=== PATIENT | female | born 1985 | race Caucasian/White ===

== ENCOUNTER 2018-10-22 20:26 | Inpatient (IN) | payer BC ==
[2018-10-22] MEDS ORDERED: NS 0.9% 1000 ML** 1,000 ML IV ONE (20:35)
[2018-10-22] MEDS ORDERED: Tetan/Diph/Pertus SYR(Tdap)* 0.5 ML SYR(BOOSTRIX) use SYR IM ONE (20:46)
[2018-10-22 20:52] LABS: Hematocrit 42 % (35-47); Hemoglobin 14.8 g/dl (12.0-16.0); Mean Corpuscular HGB Conc 35 g/dl (31-36); Mean Corpuscular Hemoglobin 33 pg (27-31); Mean Corpuscular Volume 95 fL (80-97); Mean Platelet Volume 7.3 fL (7.4-10.4); Platelet Count 284 10^3/ul (150-450); Red Blood Count 4.46 10^6/ul (4.00-5.40); Red Cell Distribution Width 13 % (10.5-15); White Blood Count 9.6 10^3/ul (3.5-10.8)
--- NOTE | 2018-10-22 20:59 | ED ---
Lower Extremity - HPI Summary HPI Summary: A 33 y/o female brought in by ambulance presents to the ED s/p fall and hitting right turcios. In the ED room, the patient has a pulse of 111 BPM, O2 saturation of 96%, respiratory rate of 15, and blood pressure of 141/102. As per triage, "BIBA als for fall resulting afall and hitting the right turcios. Obvious deformity. CMS+ Pt recieved 10 mg of Morphine in the ambulance. Reports drinking 2 beeers and 4 shots of liquor". According to the patient, she fell in the parking lot and could not get up. She stated that she screamed in the parking lot and someone called EMS. Patient stated that she was drinking ETOH tonight and probably had 6 drinks. She noted that at 1700, she had chicken tenders for dinner. She denies any neck and back pain. - History of Current Complaint Chief Complaint: EDExtremityLower Stated Complaint: RIGHT LEG INJURY Time Seen by Provider: 10/22/18 20:32 Hx Obtained From: Patient Mechanism Of Injury: Fall From Height Of: - HIT RIGHT TURCIOS Onset/Duration: Minutes Severity Initially: Severe Severity Currently: Severe Pain Intensity: 10 Pain Scale Used: 0-10 Numeric Location: Is Discrete @ - RIGHT LEG Associated Signs And Symptoms: Positive: Negative Aggravating Factor(s): Movement Alleviating Factor(s): Nothing Able to Bear Weight: No - Allergies/Home Medications Allergies/Adverse Reactions: Allergies Allergy/AdvReac Type Severity Reaction Status Date / Time No Known Allergies Allergy Verified 10/22/18 20:37 Home Medications: Home Medications Sertraline* [Zoloft*] 100 mg PO DAILY 10/22/18 [History Confirmed 10/22/18] PMH/Surg Hx/FS Hx/Imm Hx Endocrine/Hematology History: Denies: Hx Diabetes Cardiovascular History: Denies: Hx Hypertension - Surgical History Surgery Procedure, Year, and Place: none Infectious Disease History: No Infectious Disease History: Denies: Traveled Outside the [place] in Last 30 Days - Family History Known Family History: Negative: Diabetes - Social History Alcohol Use: None Substance Use Type: Reports: None Hx Tobacco Use: No Smoking Status (MU): Never Smoked Tobacco Review of Systems Negative: Fever, Chills Negative: Erythema Negative: Sore Throat Negative: Chest Pain Negative: Shortness Of Breath Negative: Abdominal Pain, Vomiting, Nausea Negative: dysuria, hematuria Positive: Other - POSITIVE: RIGHT LEG PAIN; NEGATIVE: BACK PAIN, NECK PAIN. Negative: Myalgia, Edema Negative: Rash Neurological: Other - NEGATIVE: DIZZINESS All Other Systems Reviewed And Are Negative: Yes Physical Exam - Summary Physical Exam Summary: Constitutional: Well-developed, Well-nourished, Alert. (-) Distressed Skin: Pencil eraser sized puncture over the middle of the skin. HENT: Normocephalic; Atraumatic Eyes: Conjunctiva normal Neck: Musculoskeletal ROM normal neck. (-) JVD, (-) Stridor, (-) Tracheal deviation Cardio: Rhythm regular, rate normal, Heart sounds normal; Intact distal pulses; The pedal pulses are 2+ and symmetric. Radial pulses are 2+ and symmetric. (-) Murmur Pulmonary/Chest wall: Effort normal. (-) Respiratory distress, (-) Wheezes, (-) Rales Abd: Soft, (-) epigastric tenderness, (-) Distension, (-) Guarding, (-) Rebound Musculoskeletal: (-) Edema. Deformity of foot is externally rotated. Distal sensation is somewhat diminished, distal pulses are intact. Lymph: (-) Cervical adenopathy Neuro: Alert, Oriented x3 Psych: Mood and affect Normal Triage Information Reviewed: Yes Vital Signs On Initial Exam: Initial Vitals Temp Pulse Resp BP Pulse Ox 98.6 F 86 18 133/97 96 10/22/18 20:32 10/22/18 20:32 10/22/18 20:32 10/22/18 20:32 10/22/18 20:32 Vital Signs Reviewed: Yes Procedures - Joint Reduction Right Joint Reduction Site: other - RIGHT TURCIOS. USING 60 CM OF 6 INCH ORTHOGLASS IN POSTERIOR CONFIGURATION. FRACTURES ARE COMPOUND. Specify Other Joint Reduced: PATIENT HAD DIMINISHED SENSATION BEFORE REDUCTION. Conscious Sedation: Yes - DISTAL SENSATION IMPROVED AFTER REDUCTION. Reduction Attempts: 1 - FRAGMENTS ARE SHIFTING DURING REDUCTION Pre-Procedure NV Exam: No - PRE NV WAS NOT INTACT, HOWEVER, POST NV IS INTACT ( IMPROVED). Post Joint Reduction Film: joint reduced - NV INTACT Diagnostics - Vital Signs Vital Signs Temp Pulse Resp BP Pulse Ox 10/22/18 20:32 98.6 F 86 18 133/97 96 - Laboratory Lab Results: Lab Results 10/22/18 Range/Units 20:43 WBC 9.6 (3.5-10.8) 10^3/ul RBC 4.46 (4.00-5.40) 10^6/ul Hgb 14.8 (12.0-16.0) g/dl Hct 42 (35-47) % MCV 95 (80-97) fL MCH 33 H (27-31) pg MCHC 35 (31-36) g/dl RDW 13 (10.5-15) % Plt Count 284 (150-450) 10^3/ul MPV 7.3 L (7.4-10.4) fL Result Diagrams: 10/22/18 20:43 10/22/18 20:43 Lab Statement: Any lab studies that have been ordered have been reviewed, and results considered in the medical decision making process. - Radiology LOWER EXTREMITY XR Radiology Interpretation Completed By: ED Physician Summary of Radiographic Findings: OPEN COMPOUND SPIRAL FRACTURE OF TIBIA AND FIBULA. PENDING OFFICIAL REPORT. LOWER EXTREMITY XR 2 Radiology Interpretation Completed By: ED Physician Summary of Radiographic Findings: OPEN COMPOUND SPIRAL FRACTURE OF TIBIA AND FIBULA. PENDING OFFICIAL REPORT. KNEE XR Radiology Interpretation Completed By: ED Physician Summary of Radiographic Findings: OPEN COMPOUND SPIRAL FRACTURE OF TIBIA AND FIBULA. PENDING OFFICIAL REPORT. ANKLE XR Radiology Interpretation Completed By: ED Physician Summary of Radiographic Findings: OPEN COMPOUND SPIRAL FRACTURE OF TIBIA AND FIBULA. PENDING OFFICIAL REPORT. Lower Extremity Course/Dx - Course Course Of Treatment: A 33 y/o female brought in by ambulance presents to the ED s/p fall and hitting right turcios. In the ED room, the patient has a pulse of 111 BPM, O2 saturation of 96%, respiratory rate of 15, and blood pressure of 141/ 102. As per triage, "BIBA als for fall resulting afall and hitting the right turcios. Obvious deformity. CMS+ Pt recieved 10 mg of Morphine in the ambulance. Reports drinking 2 beeers and 4 shots of liquor". According to the patient, she fell in the parking lot and could not get up. She stated that she screamed in the parking lot and someone called EMS. Patient stated that she was drinking ETOH tonight and probably had 6 drinks. She noted that at 1700, she had chicken tenders for dinner. She denies any neck and back pain. Physical examination findings significant for pencil eraser sized puncture over the middle of the skin, deformity of foot is externally rotated. Distal sensation is somewhat diminished, distal pulses are intact. A Ankle XR revealed open compound spiral fracture of tibia and fibula. A Knee XR revealed open compound spiral fracture of tibia and fibula. A Lower Extremity XR revealed open compound spiral fracture of tibia and fibula. Another Lower Extremity XR revealed open compound spiral fracture of tibia and fibula. Hematology, Chemistry, and coagulation screens were done. No significant laboratory abnormalities were found. A joint reduction was done. 60 cm of 5-inch orthoglass was used in posterior configuration. Patient had diminished sensation before reduction. Distal sensation improved after reduction. Fractures were compound and fragments shifted during reduction. Pre NV exam was not intact, however, post NV exam is intact. Patient care was discussed with orthopedic surgeon, Dr. Agustina Rolon, who accepts patient for admission. Patient will be admitted with a diagnosis of open fracture of tibia. Patient is agreeable with this plan. - Diagnoses Provider Diagnoses: Open fracture of tibia - Physician Notifications Discussed Care Of Patient With: Agustina Rolon Time Discussed With Above Provider: 20:45 Instructed by Provider To: Other - ACCEPTS PATIENT FOR ADMISSION. - Critical Care Time Critical Care Time: 30-74 min - 45 MINUTES Discharge - Sign-Out/Discharge Documenting (check all that apply): Patient Departure - ADMIT, Sign-Out Patient - FLORIDALMA Signing out patient TO: Agustina Rolon Receiving patient FROM: Jase Evans - Discharge Plan Condition: Stable Disposition: ADMITTED TO [facility] - Attestation Statements Document Initiated by Scribe: Yes Documenting Scribe: Conner Farrell Provider For Whom Scribe is Documenting (Include Credential): Jase Evans MD Scribe Attestation: Conner Saldana, scribed for Jase Evans MD on 10/22/18 at 3240. Status of Scribe Document: Ready
[2018-10-22 21:06] LABS: Activated Partial Thrombo Time 32.1 seconds (26.0-36.3); INR 0.86 (0.77-1.02)
[2018-10-22 21:08] LABS: Albumin 5.2 g/dL (3.2-5.2); BUN/Creatinine Ratio 21.1 (8-20); Calcium 9.2 mg/dL (8.6-10.3); EGFR African American 116.2 (>60); Globulin 2.6 g/dL (2-4); Potassium 4.2 mmol/L (3.5-5.0); Total Bilirubin 0.4 mg/dL (0.2-1.0); Total Protein 7.8 g/dL (6.4-8.9)
[2018-10-22] MEDS ORDERED: Morphine VIAL* 4 MG/ML VIAL (1 ml vial) IV ONE (21:12)
[2018-10-22] MEDS ORDERED: NS 0.9% 1000 ML** 1,000 ML IV SCH (21:15)
[2018-10-22] MEDS ORDERED: Morphine VIAL* 10 MG/ML 1 ML VIAL ONE (21:17)
[2018-10-22] MEDS: ceFAZolin 1 GM ADVAN(*) 1 GM in NS 0.9% 50 ML* 50 ML IVPB SCH (21:30)
[2018-10-22] MEDS ORDERED: fentaNYL* 50 MCG/ML 2 ML VIAL (100 MCG VIAL) ONE (22:14)
[2018-10-22] MEDS ORDERED: Buffered Lidocaine 1% SYRIN* 1 ML/SYRINGE INTRADERM ONE (22:15)
[2018-10-22] MEDS ORDERED: fentaNYL* 50 MCG/ML 2 ML VIAL (100 MCG VIAL) IV SLOW PU ONE (22:16)
[2018-10-22] MEDS ORDERED: Lactated Ringers 1000 ML Bag* 1,000 ML IV SCH (23:00)
[2018-10-22] MEDS ORDERED: Morphine INJ* 2 MG/ML 1 ML SYRINGE (TWO MG - NEW SYRINGE VERSION) ONE (23:32)
[2018-10-22] MEDS ORDERED: oxyCODONE/Acetamin 5/325 MG* TAB ONE (23:33)
[2018-10-23] MEDS: Morphine INJ* 2 MG/ML 1 ML SYRINGE (TWO MG - NEW SYRINGE VERSION) IV PRN ×8 (01:50→23:48)
[2018-10-23] MEDS: oxyCODONE/Acetamin 5/325 MG* TAB PO PRN ×4 (03:40→22:57)
[2018-10-23] MEDS: ceFAZolin 1 GM ADVAN(*) 1 GM in NS 0.9% 50 ML* 50 ML IVPB SCH (05:18)
[2018-10-23] MEDS: Lactated Ringers 1000 ML Bag* 1,000 ML IV SCH ×2 (07:00→20:10)
[2018-10-23] MEDS ORDERED: ceFAZolin 1 GM ADVAN(*) 1 GM ADDV.VIAL IVPB ONE (07:21)
--- NOTE | 2018-10-23 07:25 | PN ---
Progress Note - Progress Note Date of Service: 10/23/18 Note: Pt seen and examined. Full H and P was dictated in the system. Plan for right leg I and D with IMN of right tibia. Plan for surgery today.
[2018-10-23] MEDS ORDERED: KETAMINE HCL* 50 MG/ML 10 ML VIAL ONE (07:31)
[2018-10-23] MEDS ORDERED: Midazolam* 1 MG/ML 5 ML VIAL (5 MG) ONE (07:31)
[2018-10-23] MEDS ORDERED: fentaNYL* 50 MCG/ML 2 ML VIAL (100 MCG VIAL) ONE ×2 (07:31→10:41)
[2018-10-23] MEDS ORDERED: Atracurium* 10 MG/ML 10 ML VIAL ONE (07:31)
[2018-10-23] MEDS ORDERED: ceFAZolin 1 GM ADVAN(*) 1 GM in NS 0.9% 50 ML* 50 ML IVPB SCH ×3 (08:00→16:00)
[2018-10-23] MEDS ORDERED: Morphine VIAL* 10 MG/ML 1 ML VIAL ONE ×2 (08:01→09:50)
[2018-10-23] MEDS ORDERED: Naloxone* 0.4 MG/ML 1 ML VIAL IV PRN (08:26)
[2018-10-23] MEDS ORDERED: PROCHLORPERAZINE INJ 5 MG/ML 2 ML VIAL IV PRN (08:26)
[2018-10-23] MEDS ORDERED: Morphine VIAL* 4 MG/ML VIAL (1 ml vial) IV PRN (08:26)
[2018-10-23] MEDS ORDERED: DiMENhydriNATE IV* 50 MG/ML VIAL IV PUSH PRN (08:26)
[2018-10-23] MEDS ORDERED: Dexamethasone IV* 4 MG/ML 1 ML (4 MG) IV SLOW PU ONE (08:30)
[2018-10-23] MEDS ORDERED: Dexamethasone TAB* 4 MG PO ONE (08:30)
[2018-10-23] MEDS ORDERED: Propofol* 10 MG/ML 20 ML BTL ONE (08:43)
[2018-10-23] MEDS ORDERED: ceFAZolin 1 GM VIAL(*) ONE (08:43)
[2018-10-23] MEDS ORDERED: Phenylephrine INJ* 10 MG/ML 1 ML VIAL (10 MG) ONE (08:43)
[2018-10-23] MEDS ORDERED: Ondansetron INJ* 2 MG/ML VIAL ONE (08:43)
[2018-10-23] MEDS ORDERED: Dexamethasone IV* 4 MG/ML 1 ML (4 MG) ONE (08:43)
[2018-10-23] MEDS ORDERED: Lidocaine 2% PF * 5 ML VIAL ONE (08:43)
[2018-10-23] MEDS ORDERED: Ketorolac INJ* 30 MG/ML 1 ML VIAL ONE (09:11)
[2018-10-23] MEDS ORDERED: Ropivacaine* 2 MG/ML 20 ML VIAL (0.2%) ONE (10:07)
[2018-10-23] MEDS: fentaNYL* 50 MCG/ML 2 ML VIAL (100 MCG VIAL) IV PRN ×2 (10:44→11:18)
[2018-10-23] MEDS ORDERED: DiMENhydriNATE IV* 50 MG/ML VIAL ONE (11:09)
--- NOTE | 2018-10-23 11:30 | HP ---
HISTORY AND PHYSICAL: DATE OF ADMISSION: 10/22/18 ATTENDING PHYSICIAN: Agustina Rolon MD CHIEF COMPLAINT: Right leg pain. HISTORY OF PRESENT ILLNESS: Briefly, this is a 33-year-old female who is intoxicated, who slipped on ice and hit her turcios. She was brought to the ER by ambulance with blood. She had possibly 6 drinks last evening and she had eaten a heavy meal at around 5 o'clock at night. She was evaluated and con sulted at approximately 9 o'clock at night with an open tibia and fibular fracture with a small poke hole. Because the patient was intoxicated, she was started immediately on antibiotics and a tetanus was offered. She was then splinted, a saline-soaked gauze was laced, and kept overnight because she was intoxicated and because she had had a recent large meal. Plan was for surgery early at [facility] 7:30 in the morning the next day. She does have some mild tingling in her feet that has been pr esent since the time of injury, but she is able to flex and extend her toes. Her pain is controlled with pain medication. She is otherwise in her usual state of health. PAST MEDICAL HISTORY: Significant for depression, anxiety, as well as eczema. MEDICATIONS: Include: 1. Topical agent for her eczema. 2. Sertraline. ALLERGIES: None. FAMILY HISTORY: Negative for DVT, PE, coronary artery disease. SOCIAL HISTORY: She is right hand dominant. 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 She is a community ambulator. She smokes almost a pack of cigarettes a day. She drinks at least 2 alcoholic beverages per night. She has occasional marijuana but denies any cocaine or heroin. REVIEW OF SYSTEMS: A 14-point review of systems was reviewed with the patient, significant only for the above complaint, otherwise negative for fever, chills, shortness of breath, chest pain, and remai nder of systems is negative. PHYSICAL EXAMINATION GENERAL: She is in no acute distress. She is well developed and well nourished. She is alert and or iented x3. She is sitting comfortably in the bed. VITAL SIGNS: Temp of 98.4, heart rate of 73, oxygen 97 on room air, blood pressure 144/84. HEENT: EOMI. NECK: Soft and supple. CHEST: Clear to auscultation. HEART: Regular rate and rhythm. ABDOMEN: Soft, nontender. EXTREMITIES: Examination of the right leg demonstrates the splint is in place. She is able to flex a nd extend her toes, I am able to passively flex and extend her toes. She has brisk cap refills. She is sensate to light touch grossly distally. She has a small poke hole in the mid anterior aspect of the tibia. She is able to move all the other extremities without any evidence of injury. DIAGNOSTIC STUDIES: X-rays were obtained last evening that demonstrate a comminuted tibial and fibu lar fracture. LABORATORY DATA: White blood cell count of 9.6, hematocrit of 42, platelet count of 284, INR of 0.86 . Sodium is 132, potassium 4.2, chloride 99, carbon dioxide 27, BUN 15, creatinine 0.71, AST is 56, ALT is 72, glucose 97, calcium is 9.2, serum alcohol obtained last evening was 239. ASSESSMENT AND PLAN: This patient has a grade I open midshaft tibial and fibular fracture. This is an urgent surgery. She has already been started on antibiotics and has been on antibiotics all eveni ng, Ancef 1 g. We talked about the risks and benefits of the surgery. We will plan for right tibia I and D with intramedullary nail. Risks and benefits were discussed at length that include but not l imited to bleeding; infection; damage to nerves, vessels, surrounding structures; wound nonhealing; p ersistent pain; need for further surgery; scarring; stiffness; incomplete relief of symptoms; risk of anesthesia; risk of DVT; persistent pain; nonunion; malunion. She has elected to proceed. We will plan for surgery this a.m., and we will keep her for 24 hours postoperative for postoperative antibio tics and follow the patient closely. She will be nonweightbearing. I will see the patient back in 1 0 to 14 days from her discharge. [id number]/[facility] #: [id number]
[2018-10-24] MEDS: Morphine INJ* 2 MG/ML 1 ML SYRINGE (TWO MG - NEW SYRINGE VERSION) IV PRN ×4 (02:15→08:34)
--- NOTE | 2018-10-24 02:52 | OP ---
CC: PCP OPERATIVE REPORT: DATE OF OPERATION: 10/23/18 DATE OF : 89 SURGEON: Dr. Agustina Rolon. GERIATRIC ASSISTANT: YOLANDA Hutchison. An political science research assistant was needed for the entirety of the case to help with positioning, retraction, to facilit ate in the reduction, and was utilized throughout the portion of the case. ANESTHESIOLOGIST: Dr. Schwartz. ANESTHESIA: General. PRE-OP DIAGNOSIS: Right grade 1 open comminuted tib-fib fracture. POST-OP DIAGNOSIS: Right grade 1 open comminuted tib-fib fracture. OPERATIVE PROCEDURES: 1. Incision with irrigation and debridement of open wound. 2. Intramedullary nail of the right tibia. COMPLICATIONS: None. TOURNIQUET TIME: Zero minutes. ESTIMATED BLOOD LOSS: 100. IMPLANTS USED: Synthes tibial EX Nail, size 10 x 315, with the appropriate distal and proximal inter locking bolts. DISPOSITION: Stable. COMPARTMENTS: Soft and compressible. INDICATION: Lauren Tena is a 33-year-old female who was intoxicated and slipped on ice last and she presented to the ER at 8 p.m., diagnosed with an open tip-fib fracture that was grade 1 wi th a poke hole and a small abrasion. Because she was intoxicated and she had a large meal at approx imately 5 o'clock and because she presented after 8 o'clock, the decision was made to treat her with IV antibiotics and a well-padded dressing, reduce the fracture, and plan for surgery early in the [facility]. Risks and benefits of surgery were discussed at length including, but not limited to bleeding, infection, damage to nerves; vessels; surrounding structures, wound nonhealing, persistent pain, nee d for further surgery, scarring, stiffness, incomplete relief of symptoms, risks of anesthesia as wel l as nonunion, malunion, risks of infection, knee pain, risk of compartment syndrome. She has electe d to proceed. She is a smoker of about 1 pack a day. It was discussed with her that this was an inc reased risk of her having a nonunion. DESCRIPTION OF PROCEDURE: The patient was greeted in the preoperative area by the attending surgeon. The correct extremity was marked and consent was confirmed. The patient was brought back to the ope rating suite, where she was placed in the supine position on the operating table, after which she und erwent general anesthesia and endotracheal intubation. The padded splint was removed. A nonsterile tourniquet was placed high on the proximal thigh. A small bump was placed at the ipsilateral butt. The right leg was then prepped and draped in usual sterile fashion with chlorhexidine soap, scrub, al cohol wipe, and a final prep with Betadine. After appropriate surgical pause indicating site, side, procedure, and administration of antibiotics, a 15 blade was used to open the poke hole and extend it appropriately 2 to 3 cm proximally and distally. The fracture site was identified and 9 L of steril e saline were then used to gently irrigate the tissues with just gravity flow. The bone ends were re moved of any debris. After this portion was completed, attention was directed to the tibia. With the knee placed on the triangle and then initially beginning at approximately 30 degrees of knee flexion, a 15 blade was used make an incision in line with the patellar tendon. The soft tissues we re carefully extended to expose the paratenon, which was then protected for later closure. The hall lar tendon was then split using a fresh 15-blade and then at this point, attention was directed to th e starting point. Once the guidewire was placed in the correct position and confirmed on the AP and lateral views using fluoro, the 12 mm opening reamer was then used to open the canal and access the c anal. At this point, the tibia was confirmed to be reduced. Because of the nature of the fracture t hat was comminuted and rotated, the clamp was used to the previously made open incision where the ope n fracture had been to secure the fracture site. This was held by the attending while the political science research assistant passed the guidewire down. Once the guidewire was fully seated, the measuring device was used to natividad sure the length, which the best length was found to be about 315. We aimed for a size 10 nail in orly meter. At this point, reaming began again. Care was taken to make sure there was no damage to the p atella itself and the patellar tendon was protected throughout at all times. Reaming was done to abou t 11.5 mm and care was taken to make sure the fracture was reduced throughout the entirety. Once thi s was complete, the final implant was chosen, brought to the field, and impacted into position. Once it was appropriately seated distally and the fracture was again found to remain appropriately reduce d, the proximal jig arm was placed and 2 static interlocking bolts were placed more proximally throug h separate stab incisions. Distally, appropriate circles were obtained and 2 medial distal static sc rews were placed to prevent rotation as well as for static control of the nail. Final images were ob tained. The wound was then copiously irrigated with sterile saline. The patellar tendon was closed with 0 Vicryl in interrupted fashion. The paratenon was closed with 2-0 Vicryl in running fashion. The subcutaneous tissue was closed with 3-0 Monocryl and the skin with iron. The compartments wer e softly compressed while they were monitored throughout the entirety of the case. The patient had b risk cap refill with palpable DP and PT pulses. The wounds were then injected with 0.2% ropivacaine. Sterile dressings were applied as well as a well-padded short leg splint. She was awoken from [facility] and transferred to PACU in stable condition. POSTOPERATIVE PLAN: She will be nonweightbearing. She will be discharged on pain medications. DVT prophylaxis was considered and she has no personal or family history, but she will be on Lovenox whil e in-house and likely discharged on Lovenox or aspirin for approximately 4 weeks. She will receive 2 4-hour postoperative antibiotics because of her open I and D and she was receiving antibiotics all [facility] for prophylaxis. We will see the patient back in the office in approximately 2 weeks and potenti ally discharge her tomorrow on postop day 1. [id number]/[facility] #: [id number]
[2018-10-24] MEDS: oxyCODONE/Acetamin 5/325 MG* TAB PO PRN ×6 (03:11→22:41)
[2018-10-24] MEDS: Lactated Ringers 1000 ML Bag* 1,000 ML IV SCH (04:15)
--- NOTE | 2018-10-24 07:55 | PN ---
Progress Note - Progress Note Date of Service: 10/24/18 Note: Pt seen and examined. Requiring oral and IV pain meds all night. No new numbness and tingling but still has persistent tingling in some toes. No signs or symptoms of compartment syndrome. Feels uncomfortable. Denies SOB, CP. c/o knee and ankle pain. feels splint is tight but not too tight Temp Pulse Resp BP Pulse Ox 98.5 F 84 18 133/76 97 10/23/18 23:14 10/23/18 23:14 10/24/18 07:48 10/23/18 23:14 10/23/18 23:14 NAD. R leg splint in place. no strike through. able to flex/ext toes. brisk cap refill. SILT about toes. no pain on passive stretch. A/P POD#1 from I and D and IMN of R tibia Doing ok will adjust pain meds. d/c IV ice/elevate PT/OT cont abx D/C when meets PT goals, pain controlled. lovenox while in house and d/c home with ASA 325 mg BID if does well with PT. else lovenox for 4 weeks
[2018-10-24] MEDS: Enoxaparin(*) 40 MG/0.4 ML SYR SUBCUT SCH (11:38)
[2018-10-25] MEDS: oxyCODONE/Acetamin 5/325 MG* TAB PO PRN ×4 (03:21→16:02)
[2018-10-25] MEDS: Enoxaparin(*) 40 MG/0.4 ML SYR SUBCUT SCH (11:34)
--- NOTE | 2018-10-25 14:11 | PN ---
Progress Note - Progress Note Date of Service: 10/25/18 SOAP: Subjective: [] Patient seen and examined at bedside. She feels well and desires DC home. She has been mobilizing well with PT. Denies CP, SOB, dizziness or nausea. Pain is well controlled. Objective: []General: Well appearing, NAD RLE: R lower leg splint CDI. Sensation intact to light touch and capillary refill less than two seconds in exposed toes. Able to flex and extend MTPs, no pain on passive stretch of toes. L calf supple and nontender without erythema, edema or palpable cords Assessment: [] SP R I&D and IM nail right tibia Plan: []NWB RLE Keep splint CDI Aspirin 325 mg every 12 hours until follow up appointment Fu Dr palma 2 weeks post op Vital Signs Temp 97.7 F 10/25/18 11:36 Pulse 82 10/25/18 11:36 Resp 18 10/25/18 12:02 BP 146/89 10/25/18 11:36 Pulse Ox 99 10/25/18 11:36 Intake & Output 10/24/18 10/25/18 10/25/18 18:59 06:59 18:59 Intake Total 4947 2500 1240 Output Total 1200 1300 500 Balance 3747 1200 740 Intake: IV Fluids 1637 LR 1637 Oral 3310 2500 1240 Output: Urine 1200 1300 500 Other: Estimated Void Medium Large # Voids 4 Laboratory Last Values WBC 9.6 10^3/ul (3.5-10.8) 10/22/18 20:43 RBC 4.46 10^6/ul (4.00-5.40) 10/22/18 20:43 Hgb 14.8 g/dl (12.0-16.0) 10/22/18 20:43 Hct 42 % (35-47) 10/22/18 20:43 MCV 95 fL (80-97) 10/22/18 20:43 MCH 33 pg (27-31) H 10/22/18 20:43 MCHC 35 g/dl (31-36) 10/22/18 20:43 RDW 13 % (10.5-15) 10/22/18 20:43 Plt Count 284 10^3/ul (150-450) 10/22/18 20:43 MPV 7.3 fL (7.4-10.4) L 10/22/18 20:43 INR (Anticoag Therapy) 0.86 (0.77-1.02) 10/22/18 20:43 APTT 32.1 seconds (26.0-36.3) 10/22/18 20:43 Sodium 132 mmol/L (135-145) L 10/22/18 20:43 Potassium 4.2 mmol/L (3.5-5.0) 10/22/18 20:43 Chloride 99 mmol/L (101-111) L 10/22/18 20:43 Carbon Dioxide 27 mmol/L (22-32) 10/22/18 20:43 Anion Gap 6 mmol/L (2-11) 10/22/18 20:43 BUN 15 mg/dL (6-24) 10/22/18 20:43 Creatinine 0.71 mg/dL (0.51-0.95) 10/22/18 20:43 Est GFR ( Amer) 116.2 (>60) 10/22/18 20:43 Est GFR (Non-Af Amer) 96.0 (>60) 10/22/18 20:43 BUN/Creatinine Ratio 21.1 (8-20) H 10/22/18 20:43 Glucose 97 mg/dL (70-100) 10/22/18 20:43 Calcium 9.2 mg/dL (8.6-10.3) 10/22/18 20:43 Total Bilirubin 0.40 mg/dL (0.2-1.0) 10/22/18 20:43 AST 56 U/L (13-39) H 10/22/18 20:43 ALT 72 U/L (7-52) H 10/22/18 20:43 Alkaline Phosphatase 52 U/L (34-104) 10/22/18 20:43 Total Protein 7.8 g/dL (6.4-8.9) 10/22/18 20:43 Albumin 5.2 g/dL (3.2-5.2) 10/22/18 20:43 Globulin 2.6 g/dL (2-4) 10/22/18 20:43 Albumin/Globulin Ratio 2.0 (1-3) 10/22/18 20:43 Serum Alcohol 239 mg/dL (<10) H 10/22/18 20:43
[2018-10-25 15:59] VITALS: BP 139/87
--- NOTE | 2018-10-25 23:57 | DS ---
DISCHARGE SUMMARY: DATE OF ADMISSION: 10/22/18 DATE OF DISCHARGE: 10/25/18 PROVIDER: Agustina Rolon MD * (DICTATED BY YOLANDA GAONA) PRE-OP DIAGNOSIS: Right grade 1 open comminuted tib-fib fracture. OPERATIVE PROCEDURE: Incision and irrigation with debridement of the open wound and intramedullary nail of the right tibia. HISTORY: Ms. Tena is a 33-year-old female, who was intoxicated and slipped on the ice on 10/21/18 and presented to the ER and diagnosed with open tib-fib fracture grade 1 with a poke hole and a small abrasion. Due to intoxication and eating a large meal at 5 o'clock, decision was made to treat her with IV antibiotics, well-padded dressing, and reduce the fracture. Planned for surgery in the morning. The patient agreed to surgical procedure on 10/23/18. HOSPITAL COURSE: The patient was admitted to [facility] on . She underwent an incision and irrigation and debridement of an open wound as well as IM nail of right tibia without complications. On postop day #1, she was well appearing, right splint clean, dry, and intact. Able to flex and extend her toes. Brisk cap refill. Sensation intact to light touch distally. No pain on passive stretch of toes. She received 24 hours IV antibiotics postop. Postop day #2, she is well appearing, in no acute distress. No change in exam. The patient is comfortable. She is ready for discharge home. She is progressing well with physical therapy, walking with crutches well. She was deemed to be medically and orthopedically stable for discharge home. Vital signs: Temperature 97.7, pulse 82, respiratory rate 18, blood pressure 146/89, pulse ox 99. DISCHARGE MEDICATIONS: 1. Sertraline 100 mg p.o. daily. 2. Aspirin 325 b.i.d. until she is no longer immobilized at the lower extremity. 3. Percocet 5/325 one to 2 tabs every 4 to 6 hours as needed for pain., max daily dose of 8. DISCHARGE PLAN: The patient will be nonweightbearing of her right lower extremity. She will keep the splint clean, dry and intact. She will follow up with Dr. Rolon in 2 weeks postop. [place], [place] [id number]/[facility] #: [id number] [facility]
== END 2018-10-25 16:20 | disposition home or self-care (01) | DRG 313 ==
LOC: ED 20:26 → SSU 21:47
PROVIDERS: ADMIT Orthopaedic Surgery; ATTEND Orthopaedic Surgery
PROC: 0QSG06Z Reposition Right Tibia with Intramedullary Internal Fixation Device, Open Approach (ICD-10-PCS; principal; 2018-10-22)
DX: S82.251B Displaced comminuted fracture of shaft of right tibia, initial encounter for open fracture type I or II (principal); S82.451B Displaced comminuted fracture of shaft of right fibula, initial encounter for open fracture type I or II; W00.0XXA Fall on same level due to ice and snow, initial encounter; F32.9 Major depressive disorder, single episode, unspecified; F41.9 Anxiety disorder, unspecified; L30.9 Dermatitis, unspecified; F17.210 Nicotine dependence, cigarettes, uncomplicated; F10.929 Alcohol use, unspecified with intoxication, unspecified; Y90.9 Presence of alcohol in blood, level not specified; Y92.9 Unspecified place or not applicable; Z79.82 Long term (current) use of aspirin
CPT/HCPCS: 36415; 76000; 80053; 80320; 85027; 85610; 85730; 99285; A9270-GY; C1713; C1776; G0480; G8978-GP-CJ; G8979-GP-CI; J0690; J1100; J1240; J1650; J1885; J2250; J2270; J2405; J2704; J2795; J3010